=== PATIENT | female | born 2000 | race Caucasian/White ===

== ENCOUNTER 2019-02-11 19:29 | Emergency (ER) | payer BC ==
--- NOTE | 2019-02-11 21:00 | ED ---
Lower Extremity - HPI Summary HPI Summary: Patient complains of left knee pain after landing wrong while dancing yesterday. Patient has history of ACL tear, as states this feels the same. Patient ambulatory. Denies any other pain, injury or symptoms. 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 Negative: Swelling, Redness , Bruising Aggravating Factor(s): Ambulation, Weight Bearing Alleviating Factor(s): Rest, Ice Able to Bear Weight: Yes - Allergies/Home Medications Allergies/Adverse Reactions: Allergies Allergy/AdvReac Type Severity Reaction Status Date / Time Cephalosporins Allergy Hives Verified 02/11/19 19:35 PMH/Surg Hx/FS Hx/Imm Hx Endocrine/Hematology History: Denies: Hx Anticoagulant Therapy Cardiovascular History: Denies: Hx Pacemaker/ICD History: Denies: Hx Dialysis Musculoskeletal History: Denies: Hx Gout Sensory History: Denies: Hx Eye Prosthesis Opthamlomology History: Denies: Hx Legally Blind EENT History: Denies: Hx Deafness Neurological History: Denies: Hx Dementia - Immunization History Immunizations Up to Date: Yes Infectious Disease History: No Infectious Disease History: Denies: Traveled Outside the [place] in Last 30 Days - Family History Known Family History: Positive: Non-Contributory - Social History Alcohol Use: Occasionally Substance Use Type: Reports: None Smoking Status (MU): Never Smoked Tobacco Review of Systems Constitutional: Negative Eyes: Negative ENT: Negative Cardiovascular: Negative Respiratory: Negative Gastrointestinal: Negative Genitourinary: Negative Musculoskeletal: Other Skin: Negative Neurological: Negative Psychological: Normal All Other Systems Reviewed And Are Negative: Yes Physical Exam - Summary Physical Exam Summary: No swelling, erythema, ecchymosis, deformity noted to left knee. Full range of motion of left knee with some mild pain. Pain to palpation of medial left knee. Otherwise normal exam of left knee. PMS intact distally. Patient ambulatory. Triage Information Reviewed: Yes Vital Signs On Initial Exam: Initial Vitals Temp Pulse Resp BP Pulse Ox 97.6 F 85 15 130/98 99 02/11/19 19:33 02/11/19 19:33 02/11/19 19:33 02/11/19 19:33 02/11/19 19:33 Vital Signs Reviewed: Yes Appearance: Positive: Well-Appearing Skin: Positive: Warm Head/Face: Positive: Normal Head/Face Inspection Eyes: Positive: Normal Neck: Positive: Supple Respiratory/Lung Sounds: Positive: Clear to Auscultation Cardiovascular: Positive: Normal Abdomen Description: Positive: Nontender Musculoskeletal: Positive: Normal Neurological: Positive: Normal Psychiatric: Positive: Normal AVPU Assessment: Alert - [place] Coma Scale Best Eye Response: 4 - Spontaneous Best Motor Response: 6 - Obeys Commands Best Verbal Response: 5 - Oriented Coma Scale Total: 15 Procedures - Sedation Patient Received Moderate/Deep Sedation with Procedure: No Diagnostics - Vital Signs Vital Signs Temp Pulse Resp BP Pulse Ox 02/11/19 19:33 97.6 F 85 15 130/98 99 - Laboratory Lab Statement: Any lab studies that have been ordered have been reviewed, and results considered in the medical decision making process. Lower Extremity Course/Dx - Course Course Of Treatment: Patient complains of left knee pain after landing wrong while dancing yesterday. Patient has history of ACL tear, as states this feels the same. Patient ambulatory. Denies any other pain, injury or symptoms. Vital signs within normal limits. X-ray negative. Patient states she has immobilizer and crutches at home, will follow-up with orthopedics at home. Patient [employer] student, returning home soon for visit. - Diagnoses Provider Diagnoses: Knee pain, left Discharge ED - Sign-Out/Discharge Documenting (check all that apply): Patient Departure - Discharge Plan Condition: Stable Disposition: HOME Patient Education Materials: Knee Pain (ED) Referrals: [facility] [Primary Care Provider] - Additional Instructions: Ice left knee 15 minutes at a time frequently through the day. Rest. Tylenol 650 mg every 4 hours. Follow-up with orthopedics for further evaluation. - Billing Disposition and Condition Condition: STABLE Disposition: Home
[2019-02-11 21:40] VITALS: BP 114/68
== END 2019-02-11 21:38 | disposition home or self-care (01) ==
LOC: ED 19:29
DX: M25.562 Pain in left knee (principal); X50.9XXA Other and unspecified overexertion or strenuous movements or postures, initial encounter; Y93.41 Activity, dancing; Y92.9 Unspecified place or not applicable; Z88.1 Allergy status to other antibiotic agents
CPT/HCPCS: 99282